=== PATIENT | female | born 1975 | race Caucasian/White ===

== ENCOUNTER 2019-04-20 17:33 | Inpatient (IN) ==
[2019-04-20] MEDS ORDERED: DUONEB (A & A) INH ONE (18:06)
[2019-04-20] MEDS ORDERED: ALBUTEROL NEB INH ONE (18:06)
[2019-04-20] MEDS ORDERED: PULMICORT INH ONE (18:07)
[2019-04-20] MEDS ORDERED: SOLU-MEDROL IV ONE (18:09)
--- NOTE | 2019-04-20 18:17 | PROVIDER DOCUMENTATION ---
HPI-Respiratory General - General Chief Complaint: Shortness of Breath Stated Complaint: SOB Time Seen by Provider: 04/20/19 17:44 Source: patient Allergies/Adverse Reactions: Patient Allergies Allergy/AdvReac Type Severity Reaction Status Date / Time No Known Allergies Allergy Verified 04/20/19 18:09 Home Medications: Home Medication List Medication Instructions Recorded Confirmed Last Taken Type Budesonide/Formoterol Fumarate 2 inh IH BID 03/19/18 04/20/19 03/19/18 History [Symbicort 160-4.5 Mcg Inhaler] ATORVAstatin [Lipitor] 10 mg PO QHS 04/20/19 04/20/19 Unknown History Albuterol 2.5MG/Ipratrop 0.5MG 3 ml INH Q6H PRN PRN 04/20/19 04/20/19 Unknown History [Duoneb] Albuterol Sulfate [Proair 1 puff INH PRN PRN 04/20/19 04/20/19 Unknown History Respiclick] Escitalopram Oxalate 20 mg PO DAILY 04/20/19 04/20/19 Unknown History Famotidine 20 mg PO QHS 04/20/19 04/20/19 Unknown History Hydroxyzine HCl 50 mg PO QHS 04/20/19 04/20/19 Unknown History Lansoprazole 30 mg PO DAILY 04/20/19 04/20/19 Unknown History Mirabegron E.r. 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 Has had increased SOB, cough today. Used her nebulized mult times, no relief.EMS gave her one neb with some relief, although sats still low. No fever known, Cough is prod only of white sputum. No CP, no palpitations. Did have to sleep in chair last pm.. No pedal edema, no hx of CHF Review of Systems - Adult - REVIEW OF SYSTEMS - ADULT Constitutional: reports: no symptoms reported Eyes: reports: no symptoms reported Ears, Nose, Mouth & Throat: reports: no symptoms reported Cardiovascular: reports: see HPI Respiratory: reports: see HPI Gastrointestinal: reports: no symptoms reported Genitourinary: reports: no symptoms reported Musculoskeletal: reports: no symptoms reported Integumentary: reports: no symptoms reported Neurological: reports: no symptoms reported Psychiatric: reports: no symptoms reported Endocrine: reports: no symptoms reported Hematologic/Lymphatic: reports: no symptoms reported Allergic/Immunologic: reports: no symptoms reported Past History - Adult - PAST MEDICAL HISTORY-ADULT Review of Records: reports: Medications Reviewed Major Childhood Illnesses: reports: denies history Cardiovascular: reports: denies history Respiratory: reports: asthma, COPD Gastrointestinal: reports: GERD - PRIOR SURGERIES/PROCEDURES Surgical/Procedure History: reports: hysterectomy, , orthopedic (extremity) (left wrist carpal tunnel) - IMMUNIZATION STATUS Childhood Immunizations: See Nurse Assessment Flu Vaccine: See Nurse Assessment - FAMILY HISTORY Family History: other (blood clots) - SOCIAL HISTORY Smoking: cigarettes Physical Exam-General - CONSTITUTIONAL General Appearance: mild distress - EYES Eyes: PERRL/EOMI, pink conjunctivae - HEAD, EARS, NOSE, MOUTH & THROAT HENMT: normocephalic/atraumatic, moist mucous membranes, normal ENT inspection, pharynx normal - NECK Neck: full range of motion, supple, normal inspection - RESPIRATORY Respiratory: decreased breath sounds, other (diffuse mild inspir and expir wheeze) - CARDIOVASCULAR Cardiovascular: regular rate, rhythm, no edema - GASTROINTESTINAL (ABDOMEN) Abdominal Exam: non tender, soft - MUSCULOSKELETAL Back Exam: normal inspection, no CVA tenderness, no vertebral tenderness Extremity: normal range of motion, non-tender, normal inspection - SKIN Integumentary: normal color, normal turgor, warm/dry - NEUROLOGIC Neurologic: purse framer II-XII nml as tested, grossly normal, no motor/sensory deficits - PSYCHIATRIC Psych/Mental Status: normal mood/affect, normal thought content, normal thought process, oriented x 3 - HEART Score HEART Score: History: Slightly Suspicious Progress - PLAN OF CARE/RESULTS Progress/Plan/Lab Results: Vital Signs - 8 hr 04/20/19 17:58 04/20/19 18:05 Temperature 98.4 F Pulse Rate 87 86 Respiratory Rate 21 20 Blood Pressure 110/86 O2 Sat by Pulse Oximetry 97 95 Orders Category Date Time Status CHEST-1 VIEW [RAD] Stat Exams 04/20/19 18:10 Taken CBC WITH DIFF [HEME] Stat Lab 04/20/19 18:10 Uncollected COMPREHENSIVE METABOLIC PANEL [CHEM] Stat Lab 04/20/19 18:10 Uncollected Albuterol 2.5MG/Ipratrop 0.5MG [Duoneb (A & A)] Med 04/20/19 18:06 Discontinued 3 ml INH NOW ONE Albuterol [Albuterol Neb] Med 04/20/19 18:06 Discontinued 2.5 mg INH NOW ONE Budesonide [Pulmicort] Med 04/20/19 18:07 Discontinued 0.5 mg INH NOW ONE Methylprednisolone Sod Succ [Solu-Medrol] Med 04/20/19 18:09 Discontinued 125 mg IV NOW ONE Aerosol Treatments Routine Oth 04/20/19 18:07 Completed Aerosol Treatments Routine Oth 04/20/19 18:08 Completed Aerosol Treatments Stat Oth 04/20/19 18:07 Completed Aerosol Treatments Stat Oth 04/20/19 18:08 Completed Result Diagrams: 04/20/19 19:35 04/20/19 19:35 - REASSESSMENT Reassessment #1 Time Reassessed: 09:15 Status: unchanged (will admit) - CONSULTS/PCP/HOSPITALIST Notification #1 *Consult/PCP/Hospitalist*: Dr Womack Time Discussed: 21:25 Consult Disposition: Admit - CHANGE OF SHIFT REPORT (ED Provider) 1 Report Given and Care Transferred to:: [facility] Time of Transfer: 19:00 Items Pending: Labs, XRAY Results Departure - Departure Date of Disposition Decision: 04/20/19 Time of Disposition Decision: 21:30 DIAGNOSIS: COPD exacerbation, Dyspnea Disposition: ADMITTED INPATIENT 09 Certified Medical Emergency: Emergent Condition: Stable Referrals and Follow-Ups: Tarun Paredes DO [Primary Care Provider] - - Critical Care Note This patient required my direct & personal management of CC.: No Attestation - Physician/ AIME Attestation Patient care was provided by Advanced Practice Provider:: No The physician spent face to face time with patient:: Yes Advanced Practice Provider documentation review:: Supervising physician onsite and consulted in the evaluation and care of this patient. The physician did have a face to face encounter with the patient.
--- NOTE | 2019-04-20 19:28 | Diag Imaging Result Doc PS360 ---
CHEST-1 VIEW - 04/20/2019 INDICATION: SOB COMPARISON: 03/19/2018 FINDINGS: The lungs are normally expanded and clear. Heart size and mediastinal contours are normal. No pneumothorax or pleural effusion. IMPRESSION: Negative exam. Electronically signed by Enrique Carlson 04/20/2019 7:25 PM
[2019-04-20 19:55] LABS: BASO# 0.04 X1000 (0.0-0.2); BASO% 0.6 % (0.0-0.8); EOS# 0.45 X1000 (0.0-0.7); EOS% 6.9 % (0.0-10.0); HEMATOCRIT 33.8 % (37.0-47.0); LYMPH# 1.87 X1000 (1.2-3.4); LYMPH% 28.5 % (20.5-51.1); MCH 18.1 PG (27-31); MCHC 29.6 g/dL (33-37); MCV 61.1 FL (81-99); MONO# 0.46 X1000 (0.11-0.59); MPV 9.8 FL (7.4-10.4); NEUT# 3.73 X1000 (1.4-6.5); PLT 289 X1000 (130-400); RBC 5.53 XMIL (4.2-5.4); RDW 21.1 % (11.5-14.5); WBC 6.55 X1000 (4.8-10.8)
[2019-04-20 20:18] LABS: AGAP 11; ALB/GLOB RATIO 1.7; ALBUMIN 4.1 g/dL (3.5-5.0); ALKALINE PHOSPHATASE 74 U/L (32-104); BUN 12 mg/dL (8-22); CALCIUM 8.7 mg/dL (8.8-10.2); CHLORIDE 106 mmol/L (98-107); COSMO 283; CREATININE 0.7 mg/dL (0.5-0.9); ESTIMATED GFR > 60; GLUCOSE 105 mg/dL (70-104); GOT 16 U/L (10-30); GPT 17 U/L (10-36); POTASSIUM 4.2 mmol/L (3.5-5.1); SODIUM 142 mmol/L (136-145); TCO2 25 mmol/L (25-35); TOTAL BILIRUBIN 0.15 mg/dL (0.20-1.00); TOTAL PROTEIN 6.5 g/dL (6.3-8.3)
[2019-04-20] MEDS ORDERED: DUONEB (A & A) INH PRN (22:24)
[2019-04-20] MEDS: DUONEB (A & A) INH SCH (23:05)
[2019-04-21] MEDS: SOLU-MEDROL IV SCH ×3 (01:48→18:44)
[2019-04-21] MEDS: NS 1,000 ML IV SCH ×2 (01:49→16:55)
[2019-04-21] MEDS: LEVAQUIN 500 MG/D5W 500 MG/100 ML IVPB IV SCH (01:49)
[2019-04-21] MEDS: DUONEB (A & A) INH SCH ×6 (03:07→22:51)
--- NOTE | 2019-04-21 06:41 | HISTORY AND PHYSICAL ---
CHIEF COMPLAINT: Shortness of breath for about 1 day. HISTORY OF PRESENT ILLNESS: Ms. Domi Carlson is a 44-year-old female, who has a history of COPD, gastroesophageal reflux disease, hyperlipidemia, and tobacco use history. She came to the hospital because of shortness of breath, which has been ongoing for at least one day. She also describes having a nonproductive cough along with some wheezing. The patient smokes about one pack of cigarettes per day and has been doing this for about 30 years. She presented to the ER with an x-ray of her chest demonstrating acute cardiopulmonary process. She was seen and evaluated in the ER. The patient did receive DuoNeb treatment along with methylprednisolone 125 mg IV and Pulmicort one dose. The patient was admitted to the floor for further management. PAST MEDICAL HISTORY: COPD and gastroesophageal reflux disease as well as hyperlipidemia. SOCIAL HISTORY: Patient smokes 1 pack of cigarettes per day for the last 30 years. No indulgence in alcohol or drugs. ALLERGIES: No known drug allergies. PAST SURGICAL HISTORY: She has had section, hysterectomy and carpal tunnel surgery of both upper extremities. FAMILY HISTORY: Positive for diabetes. MEDICATIONS: Symbicort 160/4.5, 2 puffs twice a day, atorvastatin 80 mg p.o. at bedtime, DuoNeb every 6 hours p.r.n., ProAir 1 puff p.r.n., escitalopram 20 mg p.o. daily, famotidine 20 mg p.o. at bedtime, hydroxyzine 50 mg p.o. at bedtime, lansoprazole 30 mg p.o. daily, Myrbetriq ER 25 mg p.o. daily, montelukast 10 mg p.o. daily, Spiriva taken as directed. REVIEW OF SYSTEMS: Constitutional: No fever or headaches. Eyes: Refractive error Cardiovascular: No chest pain. GI: No nausea, vomiting, diarrhea, or abdominal pain. : No dysuria. Psychiatric: She has anxiety with depression. Musculoskeletal: No joint pain. No back pain. Endocrine: No thyroid or diabetes. Dermatologic: No skin lesions. Allergy/Immunology: No symptoms suggestive of allergic rhinitis. PHYSICAL EXAMINATION: VITAL SIGNS: Temperature 97.4 degrees, pulse 100, respiratory rate 20, blood pressure 146/75, oxygen saturation is 98%. HEENT: Atraumatic, normocephalic. She is anicteric. Extraocular movements are intact. No oral lesions noted. NECK: No lymphadenopathy or thyromegaly. CARDIOVASCULAR: S1, S2. RESPIRATORY: She has evidence of good air entry bilaterally. ABDOMEN: Soft, nontender. No masses felt. EXTREMITIES: No evidence of edema. CENTRAL NERVOUS SYSTEM: No obvious focal deficits noted. LABORATORY DATA: WBC 6.55 hematocrit 33.8, platelet count 289,000, sodium 142, potassium 4.2, chloride 106, bicarb 25, BUN 12, and creatinine 0.7. IMAGING STUDIES: X-ray of the chest reveals no acute cardiopulmonary process. ASSESSMENT AND PLAN: 1. Chronic obstructive pulmonary disease (COPD) exacerbation. Maintain patient on nebulized bronchodilators, along with intravenous steroids and also antibiotics. We will check sputum for culture and closely follow the patient's clinical progression. We will also maintain patient on oxygen supplementation. 2. Tobacco use history. Recommend nicotine patch. 3. Gastroesophageal reflux disease. Maintain patient on PPI. 4. Hyperlipidemia. Continue atorvastatin. 5. Deep vein thrombosis prophylaxis with Lovenox. 6. Gastrointestinal prophylaxis with proton pump inhibitor. cc: Markus Loera MD [facility]
[2019-04-21] MEDS: PRILOSEC PO SCH (07:03)
[2019-04-21 07:59] LABS: IRON SATURATION 4 %; TIBC 411 ug/dL; TOTAL IRON 15 ug/dL (49-151); UNBOUND IRON 396 ug/dL (112-346)
[2019-04-21 08:09] LABS: FERRITIN 5 ng/mL (13-150)
[2019-04-21] MEDS: LEXAPRO PO SCH (08:41)
[2019-04-21] MEDS: SINGULAIR PO SCH (08:42)
[2019-04-21] MEDS: LOVENOX SUBQ SCH (08:42)
[2019-04-21] MEDS: MYRBETRIQ E.R. PO SCH (08:42)
[2019-04-21] MEDS: NICODERM PATCH TD SCH (08:42)
[2019-04-21] MEDS ORDERED: TYLENOL PO PRN (12:45)
--- NOTE | 2019-04-21 15:33 | PROGRESS NOTE ---
DATE: 04/21/2019 SUBJECTIVE: Patient resting comfortably in bed. OBJECTIVE: Vital signs: Temperature 98.2 degrees, pulse 100, respiratory 16 blood pressure 130/74, oxygen saturation percent. HEENT: Atraumatic, normocephalic. Cardiovascular: S1, S2. Respiratory system: Has rhonchi in the lung [place]. Abdomen: Soft, nontender. No masses felt. Extremities: No evidence of significant edema. Central nervous system: No obvious focal deficits noted. LABORATORY DATA: WBC 6.55, hematocrit is 33.8 with a platelet count of 289,000. Sodium is 142, potassium is 4.2, chloride is 106. Bicarb is 25, BUN is 12, creatinine 0.7. Serum iron is 15, folic acid 5. ASSESSMENT AND PLAN: 1. Chronic obstructive pulmonary disease exacerbation. Maintain patient on nebulized bronchodilators, steroids, as well as antibiotics. 2. Tobacco use history. Continue nicotine patch. 3. Gastroesophageal reflux disease. Continue proton pump inhibitor. 4. Hyperlipidemia continue atorvastatin. 5. Folic acid deficiency. Start folate replacement. 6. Iron deficiency anemia. Replace iron. Gastrointestinal endoscopy in the outpatient. 7. Deep vein thrombosis prophylaxis. Lovenox. 8. Gastrointestinal prophylaxis. Proton pump inhibitor. cc: Markus Loera MD
[2019-04-21] MEDS: REQUIP PO SCH (22:11)
[2019-04-21] MEDS: ATARAX PO SCH (22:11)
[2019-04-21] MEDS: LIPITOR PO SCH (22:11)
[2019-04-22] MEDS: LEVAQUIN 500 MG/D5W 500 MG/100 ML IVPB IV SCH (02:25)
[2019-04-22] MEDS: SOLU-MEDROL IV SCH ×3 (02:26→20:12)
[2019-04-22] MEDS: DUONEB (A & A) INH SCH ×6 (02:56→23:13)
[2019-04-22] MEDS: PRILOSEC PO SCH (06:00)
[2019-04-22] MEDS: NS 1,000 ML IV SCH ×3 (06:00→18:44)
[2019-04-22] MEDS: LEXAPRO PO SCH (10:32)
[2019-04-22] MEDS: NICODERM PATCH TD SCH (10:32)
[2019-04-22] MEDS: ICAR-C PO SCH (10:33)
[2019-04-22] MEDS: FOLIC ACID PO SCH (10:33)
[2019-04-22] MEDS: MYRBETRIQ E.R. PO SCH (10:33)
[2019-04-22] MEDS: LOVENOX SUBQ SCH (10:33)
[2019-04-22] MEDS: SINGULAIR PO SCH (10:33)
--- NOTE | 2019-04-22 18:22 | PROGRESS NOTE ---
DATE: 04/22/2019 INTERVAL HISTORY: The patient's dyspnea is improving, but still intermittently short of breath. Still some wheezing. Improvement has been slow. Still some nonproductive cough. No new complaints. No acute events overnight. REVIEW OF SYSTEMS: Twelve-point review of systems negative except as per interval history. VITAL SIGNS: T-max 98.4 degrees, pulse 87, respirations 18, blood pressure 114/55, and O2 saturation 99% on room. PHYSICAL EXAMINATION: General: No acute distress. Vital Signs: As above. HEENT and Neck: Normocephalic, atraumatic. Moist mucous membranes. No cervical adenopathy. Cardiovascular: Regular rate and rhythm. No murmurs noted. Pulmonary: Pretty good air movement throughout, but still with definite expiratory wheezing. Otherwise clear. Abdomen: Soft, nontender, nondistended. Bowel sounds positive. Extremities: Peripheral pulses intact. No clubbing or cyanosis. Neurologic: Cranial nerves grossly intact. No focal deficits identified. Psychiatric: Normal mood and affect. Awake, alert, oriented x3. Skin: No new appearing rashes or lesions noted. ASSESSMENT AND PLAN: 1. Chronic obstructive pulmonary disease exacerbation. Improving slowly and oxygenation is pretty good, but still some fairly significant wheezing. We will start weaning steroids and continue DuoNeb at least one more day. If she improves significantly, we may be able to discharge home on oral steroids tomorrow. 2. Gastroesophageal reflux disease continue. Proton pump inhibitor. 3. Folate deficiency. Continue repletion. 4. Iron deficiency. Continue repletion. May need a gastrointestinal evaluation as an outpatient, but no signs of active bleeding. 5. Hyperlipidemia. Continue home statin. 6. Tobacco abuse. The patient has been counseled on cessation.
[2019-04-22] MEDS: LIPITOR PO SCH (20:12)
[2019-04-22] MEDS: ATARAX PO SCH (20:12)
[2019-04-22] MEDS: REQUIP PO SCH (20:12)
[2019-04-23] MEDS: LEVAQUIN 500 MG/D5W 500 MG/100 ML IVPB IV SCH (00:57)
[2019-04-23] MEDS: DUONEB (A & A) INH SCH ×6 (03:37→23:11)
[2019-04-23] MEDS: PRILOSEC PO SCH (06:19)
[2019-04-23 06:41] LABS: HEMATOCRIT 30.4 % (37.0-47.0); HEMOGLOBIN 8.8 g/dL (12.0-16.0); IMM GRAN# 0.02 X1000 (0.0-0.04); IMM GRAN% 0.2 % (0.0-0.5); LYMPH# 1.09 X1000 (1.2-3.4); LYMPH% 12.2 % (20.5-51.1); MCH 18.1 PG (27-31); MCHC 28.9 g/dL (33-37); MCV 62.4 FL (81-99); MONO# 0.37 X1000 (0.11-0.59); MONO% 4.2 % (1.7-9.3); NEUT# 7.43 X1000 (1.4-6.5); NEUT% 83.4 % (42.2-75.2); PLT 301 X1000 (130-400); RBC 4.87 XMIL (4.2-5.4); RDW 20.6 % (11.5-14.5); WBC 8.91 X1000 (4.8-10.8)
[2019-04-23 07:03] LABS: AGAP 9; ANISOCYTOSIS 2+; BUN 11 mg/dL (8-22); CALCIUM 8.9 mg/dL (8.8-10.2); CHLORIDE 104 mmol/L (98-107); COSMO 282; CREATININE 0.6 mg/dL (0.5-0.9); ESTIMATED GFR > 60; GLUCOSE 118 mg/dL (70-104); HYPOCHROM 3+; LYMPHS 16 % (21-51); MONO 2 % (1-9); POTASSIUM 4.4 mmol/L (3.5-5.1); SEGS 82 % (42-75); SODIUM 141 mmol/L (136-145); TCO2 28 mmol/L (25-35)
[2019-04-23] MEDS: FOLIC ACID PO SCH (11:53)
[2019-04-23] MEDS: NICODERM PATCH TD SCH (11:53)
[2019-04-23] MEDS: SOLU-MEDROL IV SCH ×2 (11:53→21:24)
[2019-04-23] MEDS: MYRBETRIQ E.R. PO SCH (11:53)
[2019-04-23] MEDS: LEXAPRO PO SCH (11:53)
[2019-04-23] MEDS: LOVENOX SUBQ SCH (11:53)
[2019-04-23] MEDS: SINGULAIR PO SCH (11:54)
[2019-04-23] MEDS: ICAR-C PO SCH (11:54)
[2019-04-23] MEDS: NS 1,000 ML IV SCH ×2 (11:54→18:15)
--- NOTE | 2019-04-23 14:23 | PROGRESS NOTE ---
DATE: 04/23/2019 INTERVAL HISTORY: Patient still with occasional episodes of dyspnea between breathing treatments, but overall continuing to improve. A little less wheezing. Still some nonproductive cough. No new complaints. No acute events overnight. REVIEW OF SYSTEMS: A 12-point review of systems is negative, except as per interval history. LABORATORY DATA: WBC 8.9, hemoglobin 8.8, hematocrit 30.4, platelet 301,000. Basic metabolic panel unremarkable aside from glucose 118. OBJECTIVE: Vital Signs: T-max 98.7 degrees, pulse 93, respirations 16, blood pressure 121/76, O2 saturation 95% on 1 L by nasal cannula. General: No acute distress. HEENT: Normocephalic, atraumatic. Moist mucous membranes. No cervical adenopathy. Cardiovascular: Regular rate and rhythm. No murmurs noted. Pulmonary: Reasonable air entry throughout. Still with expiratory wheezing, although improving from previous. No accessory muscle use or increased work of breathing. Abdomen: Soft, nontender, nondistended. Bowel sounds positive. Extremities: Peripheral pulses intact. No clubbing or cyanosis. Neurologic: Cranial nerves grossly intact. No focal deficit seen. Psychiatric: Normal mood and affect. Awake, alert, oriented x3. Skin: No new-appearing rashes or lesions seen. ASSESSMENT AND PLAN: 1. Chronic obstructive pulmonary disease exacerbation. Continuing to improve, although slowly. Continue steroids and nebulizers one more day, but suspect she will be able to transition to oral steroids and discharge home tomorrow. 2. Gastroesophageal reflux disease. Continue proton pump inhibitor. 3. Folate deficiency. Continue repletion. 4. Iron deficiency. Continue repletion. May need Gastroenterology evaluation as an outpatient. No active signs or symptoms of bleeding. Did have a little bit of a drop in her blood count, so repeat hemoglobin pending for this afternoon. If there is another significant drop, will likely go ahead and get Gastroenterology involved here. 5. Hyperlipidemia. Continue home statin. 6. Tobacco abuse. The patient has been counseled on cessation, and offered nicotine patch.
[2019-04-23 14:27] LABS: HEMATOCRIT 31.3 % (37.0-47.0); HEMOGLOBIN 9.1 g/dL (12.0-16.0)
[2019-04-23] MEDS: REQUIP PO SCH (21:24)
[2019-04-23] MEDS: LIPITOR PO SCH (21:24)
[2019-04-23] MEDS: ATARAX PO SCH (21:25)
[2019-04-24] MEDS: NS 1,000 ML IV SCH ×2 (00:07→10:39)
[2019-04-24] MEDS: LEVAQUIN 500 MG/D5W 500 MG/100 ML IVPB IV SCH (01:47)
[2019-04-24] MEDS: DUONEB (A & A) INH SCH ×3 (03:25→11:12)
[2019-04-24] MEDS: PRILOSEC PO SCH (06:00)
[2019-04-24 08:33] VITALS: BP 133/84
[2019-04-24] MEDS: FOLIC ACID PO SCH (10:14)
[2019-04-24] MEDS: LEXAPRO PO SCH (10:15)
[2019-04-24] MEDS: ICAR-C PO SCH (10:15)
[2019-04-24] MEDS: SINGULAIR PO SCH (10:15)
[2019-04-24] MEDS: MYRBETRIQ E.R. PO SCH (10:16)
[2019-04-24] MEDS: LOVENOX SUBQ SCH (10:16)
[2019-04-24] MEDS: NICODERM PATCH TD SCH (10:17)
[2019-04-24] MEDS: SOLU-MEDROL IV SCH (10:17)
--- NOTE | 2019-04-24 11:21 | DISCHARGE SUMMARY ---
ADMISSION DATE: 04/20/2019 DISCHARGE DATE: PRINCIPAL DIAGNOSIS: Chronic obstructive pulmonary disease exacerbation. SECONDARY DIAGNOSES: 1. Gastroesophageal reflux disease. 2. Folic acid deficiency. 3. Iron deficiency. 4. Hyperlipidemia. 5. Tobacco use history. DISCHARGE MEDICATIONS: Include the following: Combivent/Respimat 1 puff every 6 hours p.r.n., Icar-C one p.o. daily, folic acid 1 mg p.o. daily, Medrol Dosepak to be taken as directed, Diflucan 150 mg p.o. x1 dose, Symbicort 160/4.5 two puffs twice a day, atorvastatin 10 mg p.o. at bedtime, hydroxyzine 50 mg at bedtime, lansoprazole 30 mg p.o. daily, Myrbetriq 25 mg p.o. daily, escitalopram 20 mg p.o. daily, montelukast 10 mg p.o. daily, Spiriva to be taken as directed, Requip 4 mg p.o. at bedtime. PROCEDURES DONE DURING THIS HOSPITAL STAY: Chest x-ray on 04/20/2019 shows lungs are normally expanded and clear. Heart size and mediastinal contours are normal. No pneumothorax or pleural effusion. CONSULTATIONS DONE DURING THIS HOSPITAL STAY: None. HOSPITAL COURSE: Ms. Domi Carlson is a 44-year-old female who has a history of COPD, gastroesophageal reflux disease, hyperlipidemia, as well as tobacco use history. She was admitted to the hospital because of a nonproductive cough, shortness of breath, as well as wheezing. She does have a significant history of cigarette smoking. The patient was diagnosed as having COPD exacerbation. She was placed on nebulized bronchodilators, steroids, as well as antibiotics. The patient seemed to have done fairly well. She was also noted to have folic acid deficiency and also iron deficiency, and she was started on folic acid and iron respectively. In light of her low serum iron (iron deficiency), she will need to follow up with Gastroenterology in the outpatient for GI endoscopic studies. PHYSICAL EXAMINATION: Vital Signs: During my evaluation today, her vital signs showed temperature 98.1 degrees, pulse 86, respiratory rate 16, blood pressure 133/84, oxygen saturation 92%. HEENT: Atraumatic, normocephalic. Cardiovascular: S1, S2. Respiratory: Has evidence of good air entry bilaterally. Abdomen: Soft, nontender. No masses felt. Extremities: No evidence of edema. Central Nervous System: No obvious focal deficit noted. PLAN: The patient can be discharged home today. She is expected to take her discharge medications as noted above. She will need to follow up with Dr. Manuel, trial paralegal, for GI endoscopic studies in the outpatient, and also follow up with primary care physicians. cc: Markus Loera MD
== END 2019-04-24 12:07 | disposition home or self-care (01) ==
LOC: SUPCPDRO → ED 17:33 → 4N 22:41 → SUATTDRO 22:41 → 3N 04-23 22:29
PROVIDERS: ATTEND Internal Medicine